=== PATIENT | male | born 1940 ===

== ENCOUNTER 2017-08-19 11:08 | Outpatient (CLI) | payer MEDICARE, BC ==
--- NOTE | 2017-08-19 14:08 | Diagnostic Imaging Report ---
Indication: Cough Comparison: None 2 views of the chest obtained. No definite infiltrate or pulmonary vascular congestion identified. The heart is enlarged. The aorta is mildly enlarged consistent with atherosclerotic vascular disease. The bones are osteopenic with moderate endplate spurs throughout the thoracic spine.. There is motion on the lateral film which is relatively nondiagnostic. Impression: No acute disease
== END 2017-08-19 13:08 | disposition home or self-care (01) ==
LOC: RAD 11:08
DX: R05 Cough (principal)
CPT/HCPCS: 71020